=== PATIENT | male | born 1965 | race Caucasian/White ===

== ENCOUNTER 2016-02-26 07:08 | Outpatient (CLI) | payer OTHER | END 2016-02-26 07:09 | disposition home or self-care (01) | DX: E78.5 Hyperlipidemia, unspecified (principal) ==

== ENCOUNTER 2016-04-01 08:23 | Outpatient (CLI) | payer OTHER | END 2016-04-01 08:24 | disposition home or self-care (01) | DX: E78.5 Hyperlipidemia, unspecified (principal) ==

== ENCOUNTER 2017-10-07 08:00 | Outpatient (CLI) | payer OTHER ==
[2017-10-07 12:53] LABS: ALBUMIN 4.2 g/dL (3.2-5.5); ALBUMIN/GLOBULIN RATIO 1.6 (1.0-2.2); ALKALINE PHOSPHATASE 92 IU/L (42-121); ALT ALANINE AMINOTRANSFERASE 35 IU/L (10-60); AST ASPARTATE AMINOTRANSFERASE 28 IU/L (10-42); BILIRUBIN,TOTAL 0.9 mg/dL (0.2-1.0); BUN - BLOOD UREA NITROGEN 18 mg/dL (6-20); CALCIUM 8.5 mg/dL (8.5-10.3); CARBON DIOXIDE - CO2 27 mmol/L (21-32); CHLORIDE 104 mmol/L (101-111); CHOL/HDL RATIO 3.8 (<5.0); CHOLESTEROL 167 mg/dL; CREATININE 0.7 mg/dL (0.6-1.2); GFR - MDRD 119 (>89); GLUCOSE 81 mg/dL (70-100); HDL CHOLESTEROL 44 mg/dL; LDL CHOLESTEROL,CALCULATED 107 mg/dL; LDL/HDL RATIO 2.4 (<3.6); SODIUM 137 mmol/L (135-145); TOTAL PROTEIN 6.9 g/dL (6.7-8.2); VLDL CHOLESTEROL 16 mg/dL
== END 2017-10-07 08:01 | disposition home or self-care (01) ==
LOC: LAB.N 08:00
PROVIDERS: ATTEND Family Medicine
DX: E78.5 Hyperlipidemia, unspecified (principal)
CPT/HCPCS: 36415; 80053; 80061; 83721

== ENCOUNTER 2017-11-27 09:57 | Day surgery (SDC) | payer OTHER ==
[2017-11-27] MEDS ORDERED: LACTATED RINGERS 1,000 ML IV ONE (10:49)
[2017-11-27] MEDS ORDERED: MIDAZOLAM 2 MG/2 ML VIAL IVP ONE (11:35)
[2017-11-27] MEDS ORDERED: fentaNYL 250 MCG/5 ML VIAL IVP ONE (11:35)
[2017-11-27 12:31] VITALS: BP 154/95
== END 2017-11-27 09:58 | disposition home or self-care (01) ==
LOC: SDS 09:57
PROVIDERS: ATTEND Internal Medicine Gastroenterology
PROC: 0DJD8ZZ Inspection of Lower Intestinal Tract, Via Natural or Artificial Opening Endoscopic (ICD-10-PCS; principal; 2017-11-27 11:15)
DX: Z12.11 Encounter for screening for malignant neoplasm of colon (principal); K57.30 Diverticulosis of large intestine without perforation or abscess without bleeding; I10 Essential (primary) hypertension; E78.5 Hyperlipidemia, unspecified; Z87.891 Personal history of nicotine dependence; E66.9 Obesity, unspecified; Z68.37 Body mass index [BMI] 37.0-37.9, adult; M17.11 Unilateral primary osteoarthritis, right knee
CPT/HCPCS: 45378; J3010; J7120

== ENCOUNTER 2018-06-15 15:50 | Outpatient (CLI) | payer OTHER ==
--- NOTE | 2018-06-16 01:59 | XRAY Report ---
Reason: FINGER PAIN,LEFT Procedure Date: 06/15/2018 Accession Number: [id number] / [id number] Procedure: WCP - Finger(s) LT CPT Code: FULL RESULT: EXAM: LEFT SECOND DIGIT RADIOGRAPHY EXAM DATE: 06/15/2018 04:01 PM. CLINICAL HISTORY: Lump, pain COMPARISON: None. TECHNIQUE: 3 views. FINDINGS: Bones: Normal. No fracture or bone lesion. Joints: Mild osteoarthritis of the interphalangeal joints. Soft Tissues: Soft tissue swelling at the distal interphalangeal joint, radial side. No abnormal calcification or ossification in the soft tissues. No evidence of osseous involvement. IMPRESSION: Soft tissue swelling at the distal interphalangeal joint, without soft tissue calcification or osseous involvement. RADIA
== END 2018-06-15 15:51 | disposition home or self-care (01) ==
LOC: DI.WCP 15:50
PROVIDERS: ATTEND Family Medicine
DX: M79.645 Pain in left finger(s) (principal); R22.32 Localized swelling, mass and lump, left upper limb
CPT/HCPCS: 73140

== ENCOUNTER 2018-06-17 08:28 | Outpatient (CLI) | payer OTHER ==
[2018-06-17 12:50] LABS: BASOPHILS # (AUTO) 0.1 10^3/uL (0.0-0.1); BASOPHILS % (AUTO) 0.8 %; EOSINOPHILS # (AUTO) 0.1 10^3/uL (0.0-0.7); EOSINOPHILS % (AUTO) 0.8 %; HGB - HEMOGLOBIN 16.3 g/dL (14.0-18.0); LYMPHOCYTES # (AUTO) 1.4 10^3/uL (1.5-3.5); LYMPHOCYTES % (AUTO) 21.8 %; MEAN CORPUSCULAR HEMOGLOBIN 29.5 pg (27.0-31.0); MEAN CORPUSCULAR HGB CONC 33.4 g/dL (32.0-36.0); MEAN CORPUSCULAR VOLUME 88.3 fL (80.0-94.0); MEAN PLATELET VOLUME 9.9 fL (7.4-11.4); MONOCYTES # (AUTO) 0.5 10^3/uL (0.0-1.0); MONOCYTES % (AUTO) 7.7 %; NEUTROPHILS # (AUTO) 4.5 10^3/uL (1.5-6.6); NEUTROPHILS % (AUTO) 68.9 %; PLT - PLATELET COUNT 158 10^3/uL (130-450); RED BLOOD COUNT 5.53 10^6/uL (4.70-6.10); RED CELL DISTRIBUTION WIDTH 13.8 % (12.0-15.0); WHITE BLOOD COUNT 6.5 x10^3/uL (4.8-10.8)
[2018-06-17 13:47] LABS: HB2 TOTAL 18.1 g/dL; HEMOGLOBIN A1C 0.56 g/dL
[2018-06-17 14:31] LABS: ALBUMIN 4.5 g/dL (3.2-5.5); ALBUMIN/GLOBULIN RATIO 1.7 (1.0-2.2); ALKALINE PHOSPHATASE 63 IU/L (42-121); ALT ALANINE AMINOTRANSFERASE 35 IU/L (10-60); AST ASPARTATE AMINOTRANSFERASE 30 IU/L (10-42); BILIRUBIN,TOTAL 1.1 mg/dL (0.2-1.0); BUN - BLOOD UREA NITROGEN 18 mg/dL (6-20); CARBON DIOXIDE - CO2 25 mmol/L (21-32); CHLORIDE 102 mmol/L (101-111); CHOL/HDL RATIO 4.1 (<5.0); CHOLESTEROL 187 mg/dL; CREATININE 0.8 mg/dL (0.6-1.2); GFR - MDRD 102 (>89); GLUCOSE 85 mg/dL (70-100); HDL CHOLESTEROL 46 mg/dL; LDL CHOLESTEROL,CALCULATED 121 mg/dL; LDL/HDL RATIO 2.6 (<3.6); SODIUM 138 mmol/L (135-145); TOTAL PROTEIN 7.1 g/dL (6.7-8.2); VLDL CHOLESTEROL 20 mg/dL
== END 2018-06-17 08:29 | disposition home or self-care (01) ==
LOC: LAB.WCP 08:28
PROVIDERS: ATTEND Family Medicine
DX: Z00.00 Encounter for general adult medical examination without abnormal findings (principal); E78.5 Hyperlipidemia, unspecified
CPT/HCPCS: 36415; 80053; 80061; 83036; 83721; 84443; 85025

== ENCOUNTER 2018-06-19 06:08 | Day surgery (SDC) | payer OTHER ==
[2018-06-19] MEDS ORDERED: LACTATED RINGERS 1,000 ML IV ONE (06:40)
[2018-06-19] MEDS ORDERED: LIDOCAINE-MPF 1% 30 ML VIAL ONE (07:06)
--- NOTE | 2018-06-19 07:06 | ANESTHESIA ---
Pre-Anesthesia VS, & Labs - Diagnosis left finger index finger cyst - Procedure left index finger cyst excision Vital Signs: Temp Pulse Resp BP Pulse Ox 36.4 C L 66 18 146/91 H 98 06/19/18 06:26 06/19/18 06:26 06/19/18 06:26 06/19/18 06:26 06/19/18 06:26 Height 6 ft 4 in Weight (kg) 141.2 kg - NPO >8 hours Home Medications and Allergies Home Medications: Ambulatory Orders Naproxen Sodium [Aleve] 220 mg PO 06/19/18 Atorvastatin [Lipitor] 40 mg PO DAILY 11/26/17 Naproxen Sodium [Aleve] 220 mg PO 06/19/18 Allergies/Adverse Reactions: Allergies Allergy/AdvReac Type Severity Reaction Status Date / Time No Known Drug Allergies Allergy Verified 09/30/15 16:29 Anes History & Medical History - Anesthetic History Anesthesia Complications: reports: No previous complications - Medical History Cardiovascular: reports: High cholesterol Pulmonary: reports: None Gastrointestinal: reports: None Urinary: reports: None Musculoskeletal: reports: None Endocrine/Autoimmune: reports: None Skin: reports: None Smoking Status: Former smoker - Surgical History Orthopedic: Carpal Tunnel surgery Exam General: Alert Dental: WNL Neck Mobility: Normal Mallampati classification: II Plan Anesthesia Type: MAC Consent for Procedure(s) Verified and Reviewed: Yes Code Status: Attempt Resuscitation ASA classification: 2-Mild systemic disease Is this case an emergency?: Yes
[2018-06-19] MEDS ORDERED: BUPIVACAINE 0.25% PF 10 ML VIAL ONE (07:07)
[2018-06-19] MEDS ORDERED: MIDAZOLAM 2 MG/2 ML VIAL IVP ONE (07:50)
[2018-06-19] MEDS ORDERED: DEXAMETHASONE 4 MG/ML VIAL IVP ONE (07:50)
[2018-06-19] MEDS ORDERED: LIDOCAINE-MPF 2% 5 ML VIAL IM ONE (07:50)
[2018-06-19] MEDS ORDERED: fentaNYL 100 MCG/2 ML VIAL IVP ONE (07:50)
[2018-06-19] MEDS ORDERED: PROPOFOL 1000 MG/100 ML 100 ML IV ONE (07:50)
[2018-06-19] MEDS ORDERED: ONDANSETRON 4 MG/2 ML VIAL IVP ONE (07:50)
[2018-06-19] MEDS ORDERED: KETOROLAC 30 MG/ML VIAL IVP ONE (07:50)
[2018-06-19] MEDS ORDERED: oxyCODONE 5 MG TABLET PO PRN (08:10)
[2018-06-19 08:53] VITALS: BP 147/85
--- NOTE | 2018-06-19 09:01 | OPERATIVE REPORT ---
DATE OF SERVICE: 06/19/2018 Physician: Mark Harrison MD PREOPERATIVE DIAGNOSIS: Left index finger mass. POSTOPERATIVE DIAGNOSIS: Left index finger mass. PROCEDURE PERFORMED: Left index finger mass excision and culture and biopsy. SURGEON: Mark Harrison MD RASPER MACHINE OPERATOR: Bud Paige CRNA, [place] [place] INDICATIONS FOR SURGERY: The patient is a 52-year-old male who has a remote history of laceration of the radial aspect of his index finger at the level of the DIP joint. This laceration would have req uired sutures, but apparently it was taped closed, went onto healing uneventfully, but the patient la ter developed a small mass in that area that has recently grown in size to the point that it is tende r and painful, and the patient was referred in for care. The patient is a hardworking male. He is r ight-handed. His left index finger is slightly tender over the site. FINDINGS AT SURGERY: The patient's small, slightly greater than pea-sized lump on the index finger, had caused thinning of skin and now appeared white, almost blister-like. On incision, there was some serous fluid with small bits of white material deeper. There was the more caseous white material con sistent with inclusion cyst. There was no foreign body. There was no gross purulence, and no foul o kelli. DESCRIPTION OF OPERATIVE PROCEDURE: The patient was taken to the operating room, was given a MAC ane sthetic and sedation, and then a digital block anesthetic with 1% lidocaine and 0.25% Marcaine plain. Once the patient had adequate anesthesia, the patient's index finger radially was incised longitudi ana on the upper aspect of the mass, and dissection carried down to the tissue and the fluid, which was evacuated. The patient had a more substantial inclusion material deeper that led to the more pa lmar aspect of the middle phalanx area, and this was all removed and sent as a pathology specimen. The wound then was flushed cleaned and appropriately closed with interrupted nylon suture and sterile dressings were applied. The patient was then taken to the recovery room in stable condition. ESTIMATED BLOOD LOSS FOR THE PROCEDURE: Minimal. COMPLICATIONS: None. COUNTS: Sponge and needle counts correct. TD: 06/19/2018 08:50
== END 2018-06-19 06:09 | disposition home or self-care (01) ==
LOC: SDS 06:08
PROVIDERS: ATTEND Orthopaedic Surgery
PROC: 0JBK0ZZ Excision of Left Hand Subcutaneous Tissue and Fascia, Open Approach (ICD-10-PCS; principal; 2018-06-19 07:30)
DX: L72.0 Epidermal cyst (principal); S61.211S Laceration without foreign body of left index finger without damage to nail, sequela; I10 Essential (primary) hypertension; Z87.891 Personal history of nicotine dependence
CPT/HCPCS: 11421; 87070; 87205; J7120

== ENCOUNTER 2018-09-23 08:00 | Outpatient (CLI) | payer OTHER ==
[2018-09-23 12:29] LABS: ALBUMIN 4.3 g/dL (3.2-5.5); ALBUMIN/GLOBULIN RATIO 1.7 (1.0-2.2); ALKALINE PHOSPHATASE 63 IU/L (42-121); ALT ALANINE AMINOTRANSFERASE 27 IU/L (10-60); AST ASPARTATE AMINOTRANSFERASE 22 IU/L (10-42); BILIRUBIN,TOTAL 0.8 mg/dL (0.2-1.0); BUN - BLOOD UREA NITROGEN 22 mg/dL (6-20); CALCIUM 8.6 mg/dL (8.5-10.3); CARBON DIOXIDE - CO2 26 mmol/L (21-32); CHLORIDE 103 mmol/L (101-111); CHOLESTEROL 186 mg/dL; CREATININE 0.9 mg/dL (0.6-1.2); GFR - MDRD 89 (>89); GLUCOSE 65 mg/dL (70-100); HDL CHOLESTEROL 37 mg/dL; LDL CHOLESTEROL,CALCULATED 107 mg/dL; LDL/HDL RATIO 2.9 (<3.6); SODIUM 140 mmol/L (135-145); TOTAL PROTEIN 6.8 g/dL (6.7-8.2); VLDL CHOLESTEROL 42 mg/dL
== END 2018-09-23 23:59 | disposition home or self-care (01) ==
LOC: LAB.WCP 08:00
PROVIDERS: ATTEND Family Medicine
DX: E78.5 Hyperlipidemia, unspecified (principal); Z12.5 Encounter for screening for malignant neoplasm of prostate
CPT/HCPCS: 36415; 80053; 80061; 83721; 84153

== ENCOUNTER 2018-09-28 10:22 | Outpatient (CLI) | payer OTHER ==
[2018-09-28 13:06] LABS: CHOL/HDL RATIO 4.1 (<5.0); CHOLESTEROL 181 mg/dL; HDL CHOLESTEROL 44 mg/dL; LDL CHOLESTEROL,CALCULATED 122 mg/dL; LDL/HDL RATIO 2.8 (<3.6); VLDL CHOLESTEROL 15 mg/dL
== END 2018-09-28 23:59 | disposition home or self-care (01) ==
LOC: LAB.WCP 10:22
PROVIDERS: ATTEND Family Medicine
DX: E78.5 Hyperlipidemia, unspecified (principal)
CPT/HCPCS: 36415; 80061; 83721

== ENCOUNTER 2020-04-10 08:00 | Outpatient (CLI) | payer OTHER ==
--- NOTE | 2020-04-10 11:32 | XRAY Report ---
PROCEDURE: Abdomen 2 View X-Ray INDICATIONS: ABDOMINAL PAIN, LLQ TECHNIQUE: 6 views of the abdomen were acquired. COMPARISON: None. FINDINGS: Surgical changes and devices: None. Bowel: No pneumoperitoneum. The bowel gas pattern is within normal limits. Soft tissues: No masses; visualized solid organ contours appear normal in size. No suspicious abdom inal calcifications. Bones: No suspicious bony abnormalities. Degenerative changes are seen in the spine. IMPRESSION: Nonspecific nonobstructive bowel gas pattern in the abdomen. No pneumoperitoneum. If the re is clinical concern or persistent symptoms, additional imaging such as CT of the abdomen/pelvis ma y be helpful for further evaluation. Reviewed by: Carlos Galvan MD on 04/10/2020 11:31 AM PST Approved by: Carlos Galvan MD on 04/10/2020 11:31 AM PST Station ID: [id number]
[2020-04-10 15:01] LABS: GLUCOSE, URINE (UA) NEGATIVE (NEGATIVE); KETONES,URINE (UA) NEGATIVE (NEGATIVE); LEUKOCYTE ESTERASE, URINE NEGATIVE (NEGATIVE); NITRITE,URINE NEGATIVE (NEGATIVE); OCCULT BLOOD,URINE NEGATIVE (NEGATIVE); PH,URINE 5.5 PH (5.0-7.5); PROTEIN,URINE TRACE mg/dL (NEGATIVE); UROBILINOGEN,URINE 2 E.U./dL (NORMAL)
[2020-04-10 15:14] LABS: BILIRUBIN,URINE SMALL (NEGATIVE); CLARITY,URINE CLEAR (CLEAR); ICTOTEST,URINE POSITIVE
[2020-04-10 15:34] LABS: BACTERIA,URINE Few /HPF (None Seen); MUCUS,URINE Marked Strands; RBC,URINE 0-5 /HPF (0-5); SQUAMOUS EPITHELIAL CELL,UR MOD Squamous (<= Few); WBC,URINE 0-3 /HPF (0-3)
[2020-04-10 16:06] LABS: BASOPHILS % (AUTO) 0.4 %; EOSINOPHILS # (AUTO) 0.1 10^3/uL (0.0-0.7); EOSINOPHILS % (AUTO) 0.7 %; HCT - HEMATOCRIT 45.7 % (42.0-52.0); HGB - HEMOGLOBIN 14.9 g/dL (14.0-18.0); LYMPHOCYTES # (AUTO) 0.9 10^3/uL (1.5-3.5); LYMPHOCYTES % (AUTO) 11.7 %; MEAN CORPUSCULAR HEMOGLOBIN 29.3 pg (27.0-31.0); MEAN CORPUSCULAR HGB CONC 32.6 g/dL (32.0-36.0); MEAN PLATELET VOLUME 11.9 fL (7.4-11.4); MONOCYTES # (AUTO) 0.9 10^3/uL (0.0-1.0); MONOCYTES % (AUTO) 11.6 %; NEUTROPHILS # (AUTO) 5.7 10^3/uL (1.5-6.6); NEUTROPHILS % (AUTO) 75.1 %; PLT - PLATELET COUNT 170 10^3/uL (130-450); RED BLOOD COUNT 5.08 10^6/uL (4.70-6.10); WHITE BLOOD COUNT 7.5 x10^3/uL (4.8-10.8)
[2020-04-10 16:21] LABS: SLIDE REVIEW? Indicated
[2020-04-10 16:25] LABS: BILIRUBIN,TOTAL 1.1 mg/dL (0.2-1.0); CALCIUM 8.6 mg/dL (8.5-10.3); CREATININE 0.8 mg/dL (0.6-1.2); POTASSIUM 3.9 mmol/L (3.5-5.0); TOTAL PROTEIN 7.3 g/dL (6.7-8.2)
[2020-04-10 16:26] LABS: ALBUMIN/GLOBULIN RATIO 1.2 (1.0-2.2)
[2020-04-10 16:56] LABS: PLATELET ESTIMATE, MANUAL NORMAL (130-450,000) (NORMAL); PLATELET MORPHOLOGY 1+ LARGE PLATELETS (NORMAL); RBC MORPHOLOGY (MULTIPLE) NORMAL APPEARANCE (NORMAL)
== END 2020-04-10 23:59 | disposition home or self-care (01) ==
LOC: DI.S 08:00
PROVIDERS: ATTEND Physician Assistant Medical
DX: R10.32 Left lower quadrant pain (principal); M54.5 Low back pain; R82.998 Other abnormal findings in urine
CPT/HCPCS: 36415; 80053; 81001; 82550; 85025; 87086

== ENCOUNTER 2020-04-24 15:20 | Outpatient (CLI) | payer OTHER ==
[2020-04-24 19:41] LABS: BASOPHILS # (AUTO) 0.1 10^3/uL (0.0-0.1); BASOPHILS % (AUTO) 0.6 %; EOSINOPHILS # (AUTO) 0.1 10^3/uL (0.0-0.7); EOSINOPHILS % (AUTO) 0.8 %; HCT - HEMATOCRIT 44.5 % (42.0-52.0); HGB - HEMOGLOBIN 14.5 g/dL (14.0-18.0); LYMPHOCYTES # (AUTO) 1.7 10^3/uL (1.5-3.5); LYMPHOCYTES % (AUTO) 19.8 %; MEAN CORPUSCULAR HEMOGLOBIN 28.8 pg (27.0-31.0); MEAN CORPUSCULAR HGB CONC 32.6 g/dL (32.0-36.0); MEAN CORPUSCULAR VOLUME 88.5 fL (80.0-94.0); MEAN PLATELET VOLUME 11.9 fL (7.4-11.4); MONOCYTES # (AUTO) 0.6 10^3/uL (0.0-1.0); MONOCYTES % (AUTO) 6.6 %; NEUTROPHILS # (AUTO) 6.1 10^3/uL (1.5-6.6); NEUTROPHILS % (AUTO) 71.8 %; PLT - PLATELET COUNT 262 10^3/uL (130-450); RED BLOOD COUNT 5.03 10^6/uL (4.70-6.10); RED CELL DISTRIBUTION WIDTH 13.5 % (12.0-15.0); WHITE BLOOD COUNT 8.5 x10^3/uL (4.8-10.8)
[2020-04-24 19:59] LABS: ALBUMIN/GLOBULIN RATIO 1.5 (1.0-2.2); ALKALINE PHOSPHATASE 100 IU/L (42-121); ALT ALANINE AMINOTRANSFERASE 25 IU/L (10-60); AST ASPARTATE AMINOTRANSFERASE 21 IU/L (10-42); BILIRUBIN,TOTAL 0.4 mg/dL (0.2-1.0); BUN - BLOOD UREA NITROGEN 15 mg/dL (6-20); CALCIUM 8.7 mg/dL (8.5-10.3); CARBON DIOXIDE - CO2 27 mmol/L (21-32); CHLORIDE 100 mmol/L (101-111); CHOL/HDL RATIO 6.5 (<5.0); CHOLESTEROL 241 mg/dL; CREATININE 1.1 mg/dL (0.6-1.2); GAMMA GLUTAMYL TRANSPEPTIDASE 86 IU/L (8-55); GFR - MDRD 70 (>89); GLUCOSE 86 mg/dL (70-100); HDL CHOLESTEROL 37 mg/dL; POTASSIUM 4.3 mmol/L (3.5-5.0); SODIUM 138 mmol/L (135-145); TOTAL PROTEIN 6.6 g/dL (6.7-8.2); TRIGLYCERIDES 427 mg/dL
[2020-04-24 20:28] LABS: LDL CHOLESTEROL,DIRECT 154 mg/dL; LDLD/HDL RATIO 4.2 (<3.6)
== END 2020-04-24 15:21 | disposition home or self-care (01) ==
LOC: LAB.S 15:20
PROVIDERS: ATTEND Internal Medicine
DX: E78.5 Hyperlipidemia, unspecified (principal); Z79.899 Other long term (current) drug therapy; R79.89 Other specified abnormal findings of blood chemistry
CPT/HCPCS: 36415; 80053; 80061; 80074; 81599; 82728; 82977; 83721; 84153; 85025